=== PATIENT | female | born 1975 | race Two or more races ===

== ENCOUNTER 2021-10-17 10:55 | Day surgery (SDC) | payer OTHER ==
[~2021-10-17 10:55] MED LIST: D3 + K2 DOTS 11 EACH PO; GABAPENTIN300 M2 PO; MULTIPLE VITAM1 EAC2 PO; SIMVASTATIN20 MG PO; SINGULAIR10 MG PO; ZESTRIL2.5 MG PO
== END 2021-10-17 19:25 | disposition home or self-care (01) ==
LOC: CIR.AMB 10:55
PROVIDERS: ATTEND Obstetrics & Gynecology Obstetrics
DX: N93.8 Other specified abnormal uterine and vaginal bleeding (principal); Z20.822 Contact with and (suspected) exposure to COVID-19